=== PATIENT | female | born 1950 | race Caucasian/White ===

== ENCOUNTER 2017-06-18 12:25 | Emergency (ER) | payer MEDICARE ==
--- NOTE | 2017-06-18 12:37 | ED.PDOC ---
History of Present Illness - General Chief Complaint: General Stated Complaint: facial swelling Time Seen by Provider: 06/18/17 12:36 Source: patient Exam Limitations: no limitations - History of Present Illness Initial Comments: Ms. Tamela Gross 67 y/o female stated that 3 days ago lower side face swelled up and progressively involved her cheek and lids this morning .No history of trauma to face,wears dentures,no fever/chills.Had been to [place] 3 days ago stated was out in the sun all day. Timing/Duration: other - 3 days ago Severity: moderate Improving Factors: nothing Worsening Factors: nothing Associated Symptoms: denies symptoms Allergies/Adverse Reactions: Allergies NO KNOWN ALLERGY Allergy (Verified 06/18/17 12:39) Home Medications: Ambulatory Orders NK [NK] 06/18/17 Review of Systems - Review of Systems EENTM: States: see HPI, other - left sided facial swelling Respiratory: States: no symptoms reported Cardiology: States: no symptoms reported Gastrointestinal/Abdominal: States: no symptoms reported Genitourinary: States: no symptoms reported Skin: States: no symptoms reported Neurological: States: no symptoms reported Past Medical History (General) - Patient Medical History Hx of COPD: Yes Hx Cardiac Disorders: Yes - cad Surgical History: appendectomy - Social History Hx Tobacco Use: No Hx Chewing Tobacco Use: No Hx Physical Abuse: No Hx Emotional Abuse: No Hx Suspected Abuse: No - Activities of Daily Living Patient Lives Alone: No - family - Female History Patient is a Female of Child Bearing Age (10 -59 yrs old): No Patient : No Family Medical History - Family History Mother Family History: Unknown Hx Cardiac Disease: Yes - multiple family members Physical Exam - Physical Exam General Appearance: Alert, Comfortable, No apparent distress, Other - swelling left side face Eye Exam: bilateral normal Ears, Nose, Throat: hearing grossly normal, normal ENT inspection, other - erythema soft palate Neck: non-tender, full range of motion, supple, normal inspection Respiratory: chest non-tender, lungs clear, normal breath sounds Cardiovascular/Chest: normal peripheral pulses, regular rate, rhythm, no edema, no murmur Peripheral Pulses: radial,right: 1+, radial,left: 1+ Gastrointestinal/Abdominal: normal bowel sounds, non tender, soft Back Exam: normal inspection, no CVA tenderness, no vertebral tenderness Extremity: normal range of motion, non-tender, normal inspection, no pedal edema , no calf tenderness Neurologic: no motor/sensory deficits, alert, normal mood/affect, oriented x 3 Skin Exam: normal color Lymphatic: no adenopathy Progress - Progress Progress: 06/18/17 14:06 Vital Signs - 8 hr 06/18/17 12:32 Temperature 97.7 F Pulse Rate [ 97 H pulse ox] Respiratory 20 Rate Blood Pressure 168/93 [Left Arm] O2 Sat by Pulse 95 Oximetry Laboratory Tests 06/18/17 06/18/17 13:03 13:03 WBC 26.6 H* RBC 4.91 Hgb 14.3 Hct 42.7 MCV 87.1 MCH 29.1 MCHC 33.4 RDW 13.4 Plt Count 262 MPV 8.2 Absolute Neuts (auto) Not Reportable Absolute Lymphs (auto) Not Reportable Absolute Monos (auto) Not Reportable Absolute Eos (auto) Not Reportable Neutrophils % Not Reportable Neutrophils % (Manual) 45.0 Lymphocytes % Not Reportable Lymphocytes % (Manual) 5.0 Monocytes % Not Reportable Monocytes % (Manual) 4.0 Eosinophils % Not Reportable Basophils % Not Reportable Band Neutrophils 46.0 Sodium 135 Potassium 4.5 Chloride 101 Carbon Dioxide 24 Anion Gap 14.5 BUN 29 H Creatinine 0.72 BUN/Creatinine Ratio 40.3 H Random Glucose 142 H Serum Osmolality 278.3 Calcium 8.7 Total Bilirubin 0.7 AST 98 H ALT 228 H Alkaline Phosphatase 54 Serum Total Protein 7.3 Albumin 3.4 Globulin 3.9 H Albumin/Globulin Ratio 0.9 L - EKG/XRAY/CT CT Ordered: Yes - fluid collection left upper lip and left facial canal Departure - Departure Clinical Impression: Cellulitis and abscess of face Time of Disposition: 15:57 Disposition: Transfer to Hospital Condition: Fair Departure Forms: Patient Portal Self Enrollment Referrals: NEVILLE BARRIOS [Primary Care Provider] - 1-2 Weeks Home Medications: Ambulatory Orders NK [NK] 06/18/17 Transfer to Outside Facility - Transfer Information Accepting Provider:: Dr. Christopher Quan Accepting Facility: [facility] Reason for Transfer: required specialist not available - ENT
[2017-06-18] MEDS ORDERED: TETANUS,DIPHTHERIA,PERTUSSIS 1 EA SYG IM ONE (12:57)
[2017-06-18] MEDS ORDERED: SODIUM CHLORIDE 0.9% 1000ML 1,000 ML IVS ONE (12:57)
[2017-06-18] MEDS ORDERED: CLINDAMYCIN IV 900MG 900 MG in PREMIX BAG 1 BAG IVPB ONE (13:57)
[2017-06-18] MEDS ORDERED: valACYclovir 500 MG TAB ONE (14:06)
[2017-06-18] MEDS ORDERED: CLINDAMYCIN IV 900MG 50 ML IVPB ONE (14:09)
--- NOTE | 2017-06-18 14:27 | CT ---
EXAM DESCRIPTION: Maxillofacial w/wo Contrast CLINICAL HISTORY: swelling COMPARISON: None. TECHNIQUE: Pre and postcontrast transaxial CT images of the face are obtained with coronal and sagittal reconstructed images. This exam was performed according to our departmental dose-optimization program, which includes automated exposure control, adjustment of the mA and/or kV according to patient size and/or use of iterative reconstruction technique . FINDINGS: There is moderate asymmetric subcutaneous soft tissue fat stranding and soft tissue thickening in the left periorbital to left maxillary region extending to involve the left cheek to the level of the mandible. Soft tissue swelling of the extraconal inferior eyelid is seen. No intraconal or postseptal abnormal inflammatory changes or fluid collections are seen in the orbit. The ocular globe is unremarkable. Extraocular muscles are within normal limits. There is a peripherally enhancing ill-defined area of fluid attenuation measuring approximately 8 mm diameter by 2.4 cm length anterior to the maxilla beginning to the left of midline and extending towards the left. This may originate at the inferior medial aspect of the left nasal canal. Diffuse soft tissue swelling of the upper lip asymmetric towards the left around this area is noted. No other areas of peripherally enhancing fluid collections are seen. The patient is a dentulous. Denture material without teeth is seen over the mandible and maxilla. No fracture or dislocation of the mandible is seen. Normal aeration of the paranasal sinuses is seen without significant mucosal thickening. No air-fluid levels. There is 8 mm rightward deviation of the mid bony nasal septum with 5 mm right-sided bony spur. The ostiomeatal units are patent. Moderate mayra bullosa of the left middle turbinate is seen. Visualized intracranial structures are unremarkable. The parotid gland is unremarkable. Calcifications of the carotid bulb are seen bilaterally. Less than 1 cm submandibular and cervical chain lymph nodes are seen. No obvious tonsillar enlargement or abscess is seen. IMPRESSION: Peripherally enhancing fluid collection suggest abscess in the left upper lip as described above. This may originate from the left nasal canal. Diffuse soft tissue swelling of the face and left periorbital region with inflammation most likely represents cellulitis. No postseptal or intraconal abnormality is seen in the orbits. Significant rightward deviation of the mid bony nasal septum is seen. Electronically signed by: Sanjay Bermeo MD 06/18/2017 2:26 PM CDT
[2017-06-18] MEDS ORDERED: MORPHINE SULFATE INJ 10 MG/ML VIAL IV ONE (15:25)
[2017-06-18] MEDS ORDERED: KETOROLAC TROMETHAMINE INJ 30 MG/ML VIAL IV ONE (15:26)
[2017-06-18 16:10] VITALS: TEMP 98.9
[2017-06-18 17:09] VITALS: BP 138/82; O2SAT 95
[2017-06-18] MEDS ORDERED: valACYclovir 500 MG TAB PO SCH (21:00)
== END 2017-06-18 16:55 | disposition short-term general hospital (02) ==
LOC: ER 12:25
DX: L03.211 Cellulitis of face (principal)
CPT/HCPCS: 36415; 70488; 80053; 83605; 85025; 85651; 87040; 90715; J1885; J2270; J3490; J7030